=== PATIENT | male | born 1950 | race Caucasian/White ===

== ENCOUNTER 2017-11-19 00:15 | Inpatient (IN) | payer MEDICARE, OTHER ==
[~2017-11-19] VITALS: Ht 177.8 cm; Wt 70.8 kg
[2017-11-19] MEDS ORDERED: FAMO-132 PO (00:26)
[2017-11-19] MEDS ORDERED: ACET-2154 PO (00:26)
[2017-11-19] MEDS ORDERED: ENOX40DI SQ (00:26)
[2017-11-19] MEDS ORDERED: ASPI-605 PO (00:26)
[2017-11-19] MEDS ORDERED: DOCU-141 PO (00:26)
[2017-11-19] MEDS ORDERED: ATOR80TA PO (00:26)
--- NOTE | 2017-11-19 00:40 | NUR ---
TRANSFERED TO [facility]IA [facility]
--- NOTE | 2017-11-19 01:00 | NUR ---
RECEIVED A CALL FROM KATHY Shah [phone] AND EDITH [phone], BOTH STATED THEY ARE THE CARETAKERS OF THE PT PRIOR TO HIM BECOMING HOMELESS AND ARE WILLING TO RESUME HIS CARETAKERS AGAIN AFTER DISCHARGE.
[2017-11-19 01:21] LABS: *BILIRUBIN,URIN NEGATIVE (NEGATIVE); *BLOOD, URINE Trace-lysed (NEGATIVE); *CLARITY,URINE CLEAR (CLEAR); *COLOR,URINE YELLOW (YELLOW); *KETONES,URINE NEGATIVE (NEGATIVE); *PROTEIN,URINE NEGATIVE (NEGATIVE); *UROBILINOGEN,URINE 0.2 E.U./dl (NORMAL); LEUKOCYTE ESTERASE ,URINE NEGATIVE (NEGATIVE); NITRITE, URINE NEGATIVE (NEGATIVE); PH,URINE 5.5 (5.0-8.0); UGLUCOSE NEGATIVE (NEGATIVE)
[2017-11-19 01:28] LABS: BACTERIA,URINE NONE SEEN /HPF (NONE SEEN); RBC,URINE 0-3 /HPF (0-3); SQUAMOUS EPITHELIAL CELL,UR FEW /HPF (NONE SEEN); WBC,URINE 0-3 /HPF (0-3)
[2017-11-19] MEDS ORDERED: MAGNESIUM HYDROXIDE 30 ML LIQUID UDC PO PRN (01:30)
[2017-11-19] MEDS ORDERED: MAG HYDROX/AL HYDROX/SIMETH 30 ML LIQUID UDC PO PRN (01:30)
[2017-11-19] MEDS ORDERED: TEMAZEPAM 7.5 MG CAPSULE PO PRN (01:30)
[2017-11-19] MEDS ORDERED: ACETAMINOPHEN 325 MG TABLET PO PRN (01:30)
[2017-11-19] MEDS ORDERED: CLONAZEPAM 0.5 MG TABLET PO PRN (01:45)
--- NOTE | 2017-11-19 02:32 | NUR ---
WITH SLURRED SPEECH. PATIENT DENIES SI AT THIS TIME, WILL CONTINUE TO MONITOR. PATIENT HAS CELL PHONE WITH RETAIL COORDINATOR IN HIS HAND, PATIENT WAS TOLD OF POLICY OF HAVING A CELL PHONE THAT IT WILL BE KEPT IN LOCKER WITH HIS NAME, AND HE CAN USE PORTABLE PHONE ON THE UNIT. PATIENT BECAME AGITATED, AGGRESSIVE, COMBATIVE, LABILE, AND UNCOOPERATIVE. CALLED SECURITY TO HELP WITH COLLECTING CELL PHONE, PATIENT REFUSING TO GIVE CELL PHONE WAS GETTING COMBATIVE WITH CLOSED FIST, AND JUMPED UP FROM BED ALMOST FALLING OVER DUE TO UNSTEADY GAIT, ABLE TO COLLECT CELL PHONE AND RETAIL COORDINATOR. PATIENT THEN REFUSED TO ANSWER ANY QUESTIONS, REFUSED TO SIGN ADMISSION PAPERS, AND REFUSED SKIN ASSESSMENT. PATIENT HAS HOSPITAL GOWN AND PANTS ON. PATIENT GIVEN URINAL. PATIENT'S BEHAVIOR REMAINS UNPREDICTABLE, WILL CONTINUE TO MONITOR AND REDIRECT NEEDED. BED IN LOWEST POSITION, BED LOCKED, AND BED ALARM ON WHILE IN BED. PATIENT ON 5150 FOR DANGER TO SELF, AND GRAVELY DISABLED.
[2017-11-19 07:30] VITALS: BP 108/65
[2017-11-19] MEDS ORDERED: DOCUSATE SODIUM 100 MG CAPSULE PO PRN (11:30)
[2017-11-19] MEDS: NICOTINE 14 MG/24HR PATCH TD SCH (16:30)
[2017-11-19 16:55] VITALS: BP 124/68
--- NOTE | 2017-11-19 18:42 | NUR ---
RECEIVED Pt IN BED, SLEEPING, DIFFICULT TO AROUSE. LET Pt SLEEP AND CONTINUED TO MONITOR AND FREQUENT HEAD CHECKS Q15MIN. Pt WAS ASLEEP ALL MORNING AND WOKE UP @ APPROXIMATELY 1400. Pt A/O X 1, ABLE TO COMPREHEND AND HOLD CONVERSATION. CALM AND COMPLIANT DURING ASSESSMENT, BUT REFUSES TO ANSWER CERTAIN QUESTIONS. DEPRESSED AND FLAT AFFECT NOTED. Pt STATES HE DOES NOT REMEMBER THE EVENTS THAT OCCURRED WHICH LEAD TO HIS CURRENT HOSPITALIZATION. DENIES S/I, CFS, AND AGREES TO COMPLY WITH FACILITY RULES. OFFERED AND AGREED TO SHOWER. WILL CONTINUE TO MONITOR AND FOLLOW PLAN OF CARE.
[2017-11-19 20:08] VITALS: BP 108/67
[2017-11-19] MEDS: ESCITALOPRAM OXALATE 10 MG TABLET PO SCH (20:23)
[2017-11-19] MEDS: ATORVASTATIN 20 MG TABLET PO SCH (20:23)
--- NOTE | 2017-11-19 22:00 | NUR ---
Up to the BR with walker and minimal assistance. Remains withdrawn and passive, but cooperative and compliant. Noted with red spots/rashes to back, scab and bruise to R hand. Photos taken and documented. Medicated with Restoril for sleep. Safety and fall precautions maintained. Addendum: 11/19/17 at 2225 by KYREE DICKERSON RN Amended: Links added.
--- NOTE | 2017-11-20 00:23 | NUR ---
Sleeping; no acute distress noted.
--- NOTE | 2017-11-20 05:55 | NUR ---
Slept for about 7 hours. Up to the BR 3 times during the shift. NAD noted. Speech clear, but with limited verbal responses. Withdrawn and not able to engage in long conversation. Continues to deny SI and active suicide plan. Addendum: 11/20/17 at 0556 by KYREE DICKERSON RN Amended: Links added.
[2017-11-20 07:30] VITALS: BP 121/77
[2017-11-20 07:59] LABS: BASOPHILS % (AUTO) 0.4 % (0.0-2.0); EOSINOPHILS # (AUTO) 0.1 K/uL (0.0-0.7); EOSINOPHILS % (AUTO) 0.8 % (0.0-7.0); HEMATOCRIT 44.2 % (36.7-47.1); HEMOGLOBIN 14.9 g/dL (12.5-16.3); LYMPHOCYTES # (AUTO) 1.6 K/uL (20.0-40.0); LYMPHOCYTES % (AUTO) 17.9 % (20.5-51.5); MEAN CORPUSCULAR HEMOGLOBIN 29.6 uug (23.8-33.4); MEAN CORPUSCULAR HGB CONC 34 g/dL (32.5-36.3); MEAN CORPUSCULAR VOLUME 87.7 fL (73.0-96.2); MONOCYTES # (AUTO) 1.1 K/uL (2.0-10.0); MONOCYTES % (AUTO) 11.9 % (0.0-11.0); NEUTROPHILS # (AUTO) 6.2 K/uL (1.8-8.9); PLATELET COUNT (AUTO) 236 K/uL (152-348); RED BLOOD CELL COUNT(AUTO) 5.04 MIL/uL (4.06-5.63); WHITE BLOOD COUNT (AUTO) 8.9 K/uL (3.6-10.2)
[2017-11-20 08:22] LABS: BILIRUBIN,TOTAL 0.5 mg/dL (0.2-1.0); CREATININE 0.9 mg/dL (0.6-1.3); PHOSPHOROUS 3.1 mg/dL (2.5-4.9); POTASSIUM 3.9 mmol/L (3.5-5.1)
[2017-11-20 08:31] LABS: THYROID STIMULATING HORMONE 1.382 mIU/mL (0.358-3.740)
[2017-11-20] MEDS: NICOTINE 14 MG/24HR PATCH TD SCH (08:54)
[2017-11-20] MEDS: FAMOTIDINE 20 MG TABLET PO SCH (08:54)
[2017-11-20] MEDS: ASPIRIN EC 81 MG TABLET.DR PO SCH (08:58)
[2017-11-20 15:41] VITALS: BP 110/71
--- NOTE | 2017-11-20 16:12 | NUR ---
Initial DC Plan: Patient is currently homeless and states he does not know where he wants to go upon discharge. SW will follow up with MD, patient, and patient's friend Colin [[phone]] to discuss most appropriate discharge plans. SW will form a safe and proper discharge and provide patient with a brief substance abuse intervention.
--- NOTE | 2017-11-20 18:26 | NUR ---
PT STAYED IN HIS ROOM ALL DAY, PT WAS ENCOURAGE TO PARTICIPATE IN ACTIVITIES, BUT REFUSED MULTIPLE TIMES. PT NOTED TO BE CALM AND COOPERATIVE, DENIES ANY SUICIDAL IDEATIOPN OR PLANS. ALL SAFETY NEEDS ARE MET.
[2017-11-20 20:04] VITALS: BP 111/60
[2017-11-20] MEDS: ESCITALOPRAM OXALATE 10 MG TABLET PO SCH (20:29)
[2017-11-20] MEDS: ATORVASTATIN 20 MG TABLET PO SCH (20:29)
--- NOTE | 2017-11-21 06:34 | NUR ---
No significant events overnight. Patient remained calm and cooperative. Noted flat/depressed affect, remained in bed throughout shift. Compliant with medications and treatment. Total amount of sleep 7.5 hours.
[2017-11-21 07:30] VITALS: BP 110/61
[2017-11-21] MEDS: ASPIRIN EC 81 MG TABLET.DR PO SCH (08:04)
[2017-11-21] MEDS: NICOTINE 14 MG/24HR PATCH TD SCH (08:04)
[2017-11-21] MEDS: FAMOTIDINE 20 MG TABLET PO SCH (08:04)
[2017-11-21 16:28] VITALS: BP 117/76
[2017-11-21 19:46] VITALS: BP 126/62
[2017-11-21] MEDS: ESCITALOPRAM OXALATE 10 MG TABLET PO SCH (20:02)
[2017-11-21] MEDS: ATORVASTATIN 20 MG TABLET PO SCH (20:02)
[2017-11-22 07:30] VITALS: BP 113/69
[2017-11-22] MEDS: ASPIRIN EC 81 MG TABLET.DR PO SCH (09:01)
[2017-11-22] MEDS: NICOTINE 14 MG/24HR PATCH TD SCH (09:01)
[2017-11-22] MEDS: FAMOTIDINE 20 MG TABLET PO SCH (09:01)
[2017-11-22 15:12] VITALS: BP 113/75
--- NOTE | 2017-11-22 18:10 | NUR ---
RECEIVED Pt IN BED, SLEEPING BUT EASY TO AROUSE, A/O X 2, CALM, COOPERATIVE, GUARDED, FLAT AFFECT, DEPRESSED, AND CLEAR SPEECH. Pt IS COMPLIANT WITH MEDS AND CARE STAFF. STAYED IN BED UNTIL 1500, WENT IN TO DAY ROOM FOR THE REST OF THE SHIFT BUT DID NOT PARTICIPATE WITH GROUP ACTIVITIES, STAYED QUIET AND DID NOT INITIATE INTERACTION WITH STAFF OR OTHER PATIENTS. NO AGGRESSIVE BEHAVIORS NOTED.
[2017-11-22 20:00] VITALS: BP 115/65
[2017-11-22] MEDS: ATORVASTATIN 20 MG TABLET PO SCH (20:26)
[2017-11-22] MEDS: ESCITALOPRAM OXALATE 10 MG TABLET PO SCH (20:26)
[2017-11-23 07:30] VITALS: BP 130/77
[2017-11-23] MEDS: FAMOTIDINE 20 MG TABLET PO SCH (08:59)
[2017-11-23] MEDS: ASPIRIN EC 81 MG TABLET.DR PO SCH (08:59)
[2017-11-23] MEDS: NICOTINE 14 MG/24HR PATCH TD SCH (08:59)
[2017-11-23 15:33] VITALS: BP 110/72
[2017-11-23] MEDS: ESCITALOPRAM OXALATE 10 MG TABLET PO SCH (19:59)
[2017-11-23] MEDS: ATORVASTATIN 20 MG TABLET PO SCH (19:59)
[2017-11-23 20:00] VITALS: BP 108/67
[2017-11-24 07:30] VITALS: BP 108/63
[2017-11-24] MEDS: ASPIRIN EC 81 MG TABLET.DR PO SCH (08:45)
[2017-11-24] MEDS: NICOTINE 14 MG/24HR PATCH TD SCH (08:45)
[2017-11-24] MEDS: FAMOTIDINE 20 MG TABLET PO SCH (08:45)
[2017-11-24 15:12] VITALS: BP 110/67
[2017-11-24 20:00] VITALS: BP 116/72
[2017-11-24] MEDS: ATORVASTATIN 10 MG TABLET PO SCH (20:24)
[2017-11-24] MEDS: ESCITALOPRAM OXALATE 10 MG TABLET PO SCH (20:28)
[2017-11-25 07:30] VITALS: BP 104/56
[2017-11-25] MEDS: FAMOTIDINE 20 MG TABLET PO SCH (08:32)
[2017-11-25] MEDS: ASPIRIN EC 81 MG TABLET.DR PO SCH (08:32)
[2017-11-25] MEDS: NICOTINE 14 MG/24HR PATCH TD SCH (08:32)
[2017-11-25 15:05] VITALS: BP 96/63
[2017-11-25] MEDS: HYDROCORTISONE 1% CREAM 30 GM TUBE TP SCH ×2 (16:13→21:30)
[2017-11-25 20:00] VITALS: BP 116/75
--- NOTE | 2017-11-25 21:03 | NUR ---
RECEIVED PATIENT IN THE ACTIVITY ROOM.HE IS A/O X2.INTERACTS WHEN INITIATED BUT GIVES VAGUE ANSWERS TO QUESTIONS ABOUT HIS FAMILY.WHEN ASKED WHERE THEY WERE HE REPLIED'THEY ARE ALL ' HE LATER SAID HE HAS A SON IN [place].HE APPEARS WITHDRAWN GUARDED AND ISOLATIVE.HE IS HOWEVER COMPLAINT WITH HIS MEDS AND COOPERATIVE WITH STAFF FOR HIS CARE.SAFETY EMPHASIZED BED ALARM ON AND ROOM REMAIN CLUTTER FREE.WILL CONTINUE TO MONITOR
[2017-11-25] MEDS: ATORVASTATIN 10 MG TABLET PO SCH (21:29)
[2017-11-25] MEDS: ESCITALOPRAM OXALATE 10 MG TABLET PO SCH (21:29)
[2017-11-26 07:30] VITALS: BP 119/71
[2017-11-26 08:44] LABS: BASOPHILS # (AUTO) 0.1 K/uL (0.0-8.0); BASOPHILS % (AUTO) 0.7 % (0.0-2.0); EOSINOPHILS # (AUTO) 0.2 K/uL (0.0-0.7); EOSINOPHILS % (AUTO) 1.3 % (0.0-7.0); HEMOGLOBIN 14.8 g/dL (12.5-16.3); LYMPHOCYTES # (AUTO) 2.1 K/uL (20.0-40.0); LYMPHOCYTES % (AUTO) 18.2 % (20.5-51.5); MEAN CORPUSCULAR HEMOGLOBIN 29.4 uug (23.8-33.4); MEAN CORPUSCULAR HGB CONC 34 g/dL (32.5-36.3); MEAN CORPUSCULAR VOLUME 87.1 fL (73.0-96.2); MONOCYTES # (AUTO) 1.5 K/uL (2.0-10.0); MONOCYTES % (AUTO) 13.2 % (0.0-11.0); NEUTROPHILS # (AUTO) 7.7 K/uL (1.8-8.9); NEUTROPHILS % (AUTO) 66.6 % (38.5-71.5); RED BLOOD CELL COUNT(AUTO) 5.05 MIL/uL (4.06-5.63)
[2017-11-26 08:51] LABS: PLATELET COUNT (AUTO) 375 K/uL (152-348); WHITE BLOOD COUNT (AUTO) 11.5 K/uL (3.6-10.2)
[2017-11-26 09:12] LABS: BILIRUBIN,TOTAL 0.3 mg/dL (0.2-1.0); CREATININE 0.9 mg/dL (0.6-1.3); MAGNESIUM 2.2 mg/dL (1.8-2.4); PHOSPHOROUS 3.1 mg/dL (2.5-4.9); POTASSIUM 4.3 mmol/L (3.5-5.1)
[2017-11-26] MEDS: FAMOTIDINE 20 MG TABLET PO SCH (09:23)
[2017-11-26] MEDS: ASPIRIN EC 81 MG TABLET.DR PO SCH (09:23)
[2017-11-26] MEDS: NICOTINE 14 MG/24HR PATCH TD SCH (09:24)
[2017-11-26] MEDS: HYDROCORTISONE 1% CREAM 30 GM TUBE TP SCH ×2 (09:27→20:23)
[2017-11-26 15:08] VITALS: BP 117/68
[2017-11-26] MEDS: ARIPIPRAZOLE 2 MG TABLET PO SCH (17:08)
[2017-11-26 20:00] VITALS: BP 114/73
[2017-11-26] MEDS: ESCITALOPRAM OXALATE 10 MG TABLET PO SCH (20:23)
[2017-11-26] MEDS: ATORVASTATIN 10 MG TABLET PO SCH (20:23)
--- NOTE | 2017-11-26 20:30 | NUR ---
RECEIVED PT IN THE DAY ROOM. HE WAS NOTED A/O X 3. HE IS ABLE TO AMBULATE WITH STEADY GAIT AND ABLE TO MAKE HIS NEEDS KNOW. HE WAS NOTED WITH DEPRESSED MOOD, BUNTED AFFECT. HE DENIES SI/HI. HE DENIES HEARING VOICES. LIMITED INSIGHT AN JUDGMENT. ABLE TO CFS. PATIENT ABLE TO COMPLY WITH MEDICATION REGIMENT AT THIS TIME. SAFETY WAS EMPHASIS. WILL CONTINUE TO MONITOR CLOSELY
[2017-11-27 07:30] VITALS: BP 114/70
[2017-11-27 08:00] LABS: BASOPHILS # (AUTO) 0.1 K/uL (0.0-8.0); BASOPHILS % (AUTO) 0.7 % (0.0-2.0); EOSINOPHILS # (AUTO) 0.1 K/uL (0.0-0.7); EOSINOPHILS % (AUTO) 1.4 % (0.0-7.0); HEMATOCRIT 45.1 % (36.7-47.1); HEMOGLOBIN 15.2 g/dL (12.5-16.3); LYMPHOCYTES # (AUTO) 2.1 K/uL (20.0-40.0); LYMPHOCYTES % (AUTO) 21.2 % (20.5-51.5); MEAN CORPUSCULAR HEMOGLOBIN 29.5 uug (23.8-33.4); MEAN CORPUSCULAR HGB CONC 34 g/dL (32.5-36.3); MEAN CORPUSCULAR VOLUME 87.5 fL (73.0-96.2); MONOCYTES # (AUTO) 1.3 K/uL (2.0-10.0); MONOCYTES % (AUTO) 12.6 % (0.0-11.0); NEUTROPHILS # (AUTO) 6.4 K/uL (1.8-8.9); NEUTROPHILS % (AUTO) 64.1 % (38.5-71.5); PLATELET COUNT (AUTO) 373 K/uL (152-348); RED BLOOD CELL COUNT(AUTO) 5.15 MIL/uL (4.06-5.63); WHITE BLOOD COUNT (AUTO) 9.9 K/uL (3.6-10.2)
--- NOTE | 2017-11-27 08:00 | NUR ---
RECEIVED PT IN BED, AFEBRILE, NO C/O PAIN OR DISCOMFORT. HE WAS NOTED A/O X 3. HE IS ABLE TO AMBULATE WITH STEADY GAIT AND ABLE TO VERBALIZE KNOWN NEEDS. HE WAS NOTED WITH DEPRESSED MOOD, BUNTED AFFECT. HE DENIES SI/HI. HE DENIES HEARING VOICES. LIMITED INSIGHT AN JUDGMENT. ABLE TO CFS. PATIENT ABLE TO COMPLY WITH MEDICATION REGIMENT AT THIS TIME. SAFETY WAS EMPHASIS. WILL CONTINUE TO MONITOR CLOSELY
[2017-11-27] MEDS: ARIPIPRAZOLE 2 MG TABLET PO SCH (09:05)
[2017-11-27] MEDS: NICOTINE 14 MG/24HR PATCH TD SCH (09:06)
[2017-11-27] MEDS: FAMOTIDINE 20 MG TABLET PO SCH (09:06)
[2017-11-27] MEDS: ASPIRIN EC 81 MG TABLET.DR PO SCH (09:06)
[2017-11-27] MEDS: HYDROCORTISONE 1% CREAM 30 GM TUBE TP SCH ×2 (09:06→20:03)
[2017-11-27 16:22] VITALS: BP 120/80
--- NOTE | 2017-11-27 17:00 | NUR ---
Gps/[employer]cre[employer]- Isolative, staying in his room in bed most of the time, encouraged continued participation in his group therapy, medication compliant
[2017-11-27 19:47] VITALS: BP 117/74
[2017-11-27] MEDS: ATORVASTATIN 10 MG TABLET PO SCH (20:01)
[2017-11-27] MEDS: ESCITALOPRAM OXALATE 10 MG TABLET PO SCH (20:02)
--- NOTE | 2017-11-27 21:10 | NUR ---
RECEIVED PATIENT IN BED SLEEPING BUT EASILY TO AROUSE. CALM AND COOPERATIVE. AAOX2-3. ABLE TO AMBULATE WITH A STEADY GAIT AND ABLE TO MAKE NEEDS KNOWN. FLAT AFFECT WITH DEPRESSED MOOD AND CLEAR SPEECH. COMPLIANT WITH MEDS AND CARE STAFF. NO AGGRESSIVE BEHAVIOR NOTED. DENIES ANY SUICIDAL IDEATION OR ABILITY TO HARM SELF. DENIES HEARING VOICES, LIMITED INSIGHTAND JUDGEMENT. SAFETY WAS EMPHASIZED.
--- NOTE | 2017-11-28 00:04 | NUR ---
SLEEPING UPON ROUNDS. NO ACUTE DISTRESS NOTED. WILL MONITOR PATIENT.
--- NOTE | 2017-11-28 06:24 | NUR ---
SLEPT AT LONG INTERVALS. NO ACITE DISTRESS.
[2017-11-28 07:30] VITALS: BP 117/73
[2017-11-28] MEDS: FAMOTIDINE 20 MG TABLET PO SCH (08:28)
[2017-11-28] MEDS: ASPIRIN EC 81 MG TABLET.DR PO SCH (08:28)
[2017-11-28] MEDS: ARIPIPRAZOLE 5 MG TABLET PO SCH (08:28)
[2017-11-28] MEDS: NICOTINE 14 MG/24HR PATCH TD SCH (08:28)
[2017-11-28] MEDS: HYDROCORTISONE 1% CREAM 30 GM TUBE TP SCH ×2 (08:29→21:48)
[2017-11-28] MEDS ORDERED: ARIPIPRAZOLE 2 MG TABLET PO SCH (09:00)
[2017-11-28 15:58] VITALS: BP 111/75
[2017-11-28] MEDS ORDERED: GUAIFENESIN/DEXTROMETHORPHAN 5 ML UDC PO PRN (17:15)
[2017-11-28] MEDS: ESCITALOPRAM OXALATE 10 MG TABLET PO SCH (21:45)
[2017-11-28] MEDS: ATORVASTATIN 10 MG TABLET PO SCH (21:45)
[2017-11-28 21:54] VITALS: BP 106/66
[2017-11-29 07:30] VITALS: BP 105/62
[2017-11-29] MEDS: FAMOTIDINE 20 MG TABLET PO SCH (08:51)
[2017-11-29] MEDS: ARIPIPRAZOLE 5 MG TABLET PO SCH (08:51)
[2017-11-29] MEDS: ASPIRIN EC 81 MG TABLET.DR PO SCH (08:52)
[2017-11-29] MEDS: HYDROCORTISONE 1% CREAM 30 GM TUBE TP SCH ×2 (08:52→21:45)
[2017-11-29] MEDS: NICOTINE 14 MG/24HR PATCH TD SCH (08:52)
[2017-11-29 15:44] VITALS: BP 99/67
[2017-11-29 20:00] VITALS: BP 112/74
[2017-11-29] MEDS: ESCITALOPRAM OXALATE 10 MG TABLET PO SCH (21:44)
[2017-11-29] MEDS: ATORVASTATIN 10 MG TABLET PO SCH (21:44)
--- NOTE | 2017-11-30 06:00 | NUR ---
PATIENT SLEPT A TOTAL OF EIGHT AND A HALF HOURS, NO DISTRESS NOTED, CONTINUE TO MONITOR FOR SAFETY.
[2017-11-30 07:43] LABS: BASOPHILS # (AUTO) 0.1 K/uL (0.0-8.0); BASOPHILS % (AUTO) 0.7 % (0.0-2.0); EOSINOPHILS # (AUTO) 0.2 K/uL (0.0-0.7); EOSINOPHILS % (AUTO) 1.7 % (0.0-7.0); HEMATOCRIT 46.6 % (36.7-47.1); HEMOGLOBIN 15.4 g/dL (12.5-16.3); LYMPHOCYTES % (AUTO) 20.1 % (20.5-51.5); MEAN CORPUSCULAR HEMOGLOBIN 29.1 uug (23.8-33.4); MEAN CORPUSCULAR HGB CONC 33 g/dL (32.5-36.3); MEAN CORPUSCULAR VOLUME 88.1 fL (73.0-96.2); MONOCYTES # (AUTO) 1.1 K/uL (2.0-10.0); MONOCYTES % (AUTO) 11.3 % (0.0-11.0); NEUTROPHILS # (AUTO) 6.6 K/uL (1.8-8.9); NEUTROPHILS % (AUTO) 66.2 % (38.5-71.5); PLATELET COUNT (AUTO) 395 K/uL (152-348); RED BLOOD CELL COUNT(AUTO) 5.28 MIL/uL (4.06-5.63); WHITE BLOOD COUNT (AUTO) 9.9 K/uL (3.6-10.2)
[2017-11-30 08:04] LABS: BILIRUBIN,TOTAL 0.5 mg/dL (0.2-1.0); CREATININE 1.1 mg/dL (0.6-1.3); MAGNESIUM 2.1 mg/dL (1.8-2.4); PHOSPHOROUS 3.6 mg/dL (2.5-4.9); POTASSIUM 4.4 mmol/L (3.5-5.1); TOTAL PROTEIN, SERUM 7.1 g/dL (6.4-8.2)
[2017-11-30 08:30] VITALS: BP 116/76
[2017-11-30] MEDS: ASPIRIN EC 81 MG TABLET.DR PO SCH (08:31)
[2017-11-30] MEDS: FAMOTIDINE 20 MG TABLET PO SCH (08:31)
[2017-11-30] MEDS: ARIPIPRAZOLE 5 MG TABLET PO SCH (08:31)
[2017-11-30] MEDS: NICOTINE 14 MG/24HR PATCH TD SCH (08:32)
[2017-11-30] MEDS: HYDROCORTISONE 1% CREAM 30 GM TUBE TP SCH ×2 (08:32→20:52)
[2017-11-30] MEDS ORDERED: MAGNESIUM HYDROXIDE 30 ML LIQUID UDC PO ONE (10:30)
[2017-11-30] MEDS: DOCUSATE SODIUM 100 MG CAPSULE PO SCH ×2 (11:09→20:51)
[2017-11-30 16:48] VITALS: BP 110/67
[2017-11-30 20:00] VITALS: BP 112/59
[2017-11-30] MEDS: ESCITALOPRAM OXALATE 10 MG TABLET PO SCH (20:51)
[2017-11-30] MEDS: ATORVASTATIN 10 MG TABLET PO SCH (20:51)
[2017-12-01 07:30] VITALS: BP 108/66
[2017-12-01] MEDS: NICOTINE 14 MG/24HR PATCH TD SCH (08:58)
[2017-12-01] MEDS: HYDROCORTISONE 1% CREAM 30 GM TUBE TP SCH (08:58)
[2017-12-01] MEDS: DOCUSATE SODIUM 100 MG CAPSULE PO SCH (08:58)
[2017-12-01] MEDS: ASPIRIN EC 81 MG TABLET.DR PO SCH (08:58)
[2017-12-01] MEDS: ARIPIPRAZOLE 5 MG TABLET PO SCH (08:58)
[2017-12-01] MEDS: FAMOTIDINE 20 MG TABLET PO SCH (08:58)
--- NOTE | 2017-12-01 13:07 | NUR ---
DC Note: Patient will be discharged to [facility] [[address] [place] [address]; ] via ambulance today. GINA spoke with Nsurat at [facility] to confirm discharge plans. Patient is alert and oriented x4 and denies SI and HI. Patient is aware and agreeable to discharge plans. SW left a voicemail for patient's friend Dayton [[phone]] with details of patient's discharge plans. Patient will follow up with Dr. Villalobos (psychiatrist) and either Dr. Kiran Argueta or Dr. Lara (internists) at the facility. Patient was provided a brief substance abuse intervention for amphetamine use. Patient was provided with substance abuse referrals for [facility] [[address] [place] [address], ], [facility] [[address] [place] [address]], and [facility] [[address] [place] [address], ]. Patient was also provided smoking cessation referrals for [employer] [facility] and [employer] [phone].
[2017-12-01 15:00] VITALS: BP 102/57
--- NOTE | 2017-12-01 15:32 | NUR ---
GPS: Nursing Notes: Discharge Notes: Patient is awake and responding to his name, cooperative with nursing care, compliant with his medications, denies any SI/HI, denies any AH/VH, denies any pain or discomfort, denies any SOB, discharge to [facility], [facility] at [address] [place], [place] [id number] , report given to [facility] RN clerk supervisor, social organization professor left message of discharge to [place] . Patient will follow up with Dr. Villalobos (psychiatrist) and either Dr. Kiran Argueta or Dr. Lara (internists) at the facility. Patient was provided a brief substance abuse intervention for amphetamine use. Patient was provided with substance abuse referrals for [facility] [[address] [place] [address], ], [facility] [[address] [place] [address]], and [facility] [[address] [place] [address], ]. Patient was also provided smoking cessation referrals for [employer] [facility] and [employer] [phone].
== END 2017-12-01 15:30 | DRG 885 ==
LOC: ER 00:20 → GPS 00:27
PROVIDERS: ADMIT Psychiatry & Neurology Psychiatry; ATTEND Nurse Practitioner Acute Care
DX: F32.2 Major depressive disorder, single episode, severe without psychotic features (principal); E88.09 Other disorders of plasma-protein metabolism, not elsewhere classified; F17.210 Nicotine dependence, cigarettes, uncomplicated; R47.1 Dysarthria and anarthria; Z86.73 Personal history of transient ischemic attack (TIA), and cerebral infarction without residual deficits; Z59.0 Homelessness; K59.09 Other constipation; Z79.899 Other long term (current) drug therapy; F19.11 Other psychoactive substance abuse, in remission; R21 Rash and other nonspecific skin eruption
CPT/HCPCS: 36415; 71045; 83735; 84100; 84443; 85025; 87086; 97116; 97530; A4663